=== PATIENT | male | born 1970 | race Caucasian/White ===

== ENCOUNTER 2023-01-22 19:33 | Emergency (ER) | payer MEDICAID, SELFPAY ==
[2023-01-22] VITALS (19 sets, daily range): BP systolic 142–192; BP diastolic 77–114; PULSE 60–80; RESP 18–32; TEMP 36.6; O2SAT 93–97; BMI 33.7
--- NOTE | 2023-01-22 19:35 | EKG12_ITS ---
Test Reason : DYSRHYTHMIA Blood Pressure : / mmHG Vent. Rate : 071 BPM Atrial Rate : 071 BPM P-R Int : 126 ms QRS Dur : 092 ms QT Int : 410 ms P-R-T Axes : 061 -29 076 degrees QTc Int : 445 ms Normal sinus rhythm Left ventricular hypertrophy Abnormal ECG Confirmed by MARIA EUGENIA REAL, RADHA ([id number]), editorial clerk ANASTASIIA DENSON ([id number]) on 01/23/2023 9:06:51 AM Referred By: GEE Confirmed By:RADHA DEL CID MD
--- NOTE | 2023-01-22 19:35 | CT_ITS ---
STUDY: CT BRAIN WITHOUT CONTRAST REASON FOR EXAM: Male, 52 years old. Neuro deficit, acute, stroke suspected RADIATION DOSAGE (If Supplied By Facility): CTDIvol = ( ) mGy, DLP = ( ) mGycm TECHNIQUE: Transaxial CT imaging of the brain was performed without administration of intravenous contrast material. Individualized dose optimization techniques were used for this CT. COMPARISON: No relevant priors. FINDINGS: Normal soft tissue structures. Normal calvarium. Normal size ventricles and extra-axial spaces for the patient''s age. Normal white matter tracts of the cerebral hemispheres. Normal basal ganglia and thalami. Normal brainstem. Normal cerebellum. There is no intracranial hemorrhage. Encephalomalacia in the right occipital lobe consistent with a chronic infarct. Normal visualized paranasal sinuses. CT/STROKE Brain/Head without Cont IMPRESSION: No acute intracranial hemorrhage. N.B. : The above Results were Read Back by Roel Ryan MD to Carie Millard DO, and understanding confirmed on 01/22/2023 19:51:30 (ET). Electronically Signed: Roel Ryan MD at 19:52 EDT ,
--- NOTE | 2023-01-22 19:36 | CT_ITS ---
We are attempting to reach an attending provider to discuss findings. An addendum with communication details will be sent when the communication is complete. STUDY: CTA HEAD AND NECK WITH CONTRAST REASON FOR EXAM: Male, 52 years old. Neuro deficit, acute, stroke suspected RADIATION DOSAGE (If Supplied By Facility): CTDIvol = ( 30.44 ) mGy, DLP = ( 740.70 ) mGycm TECHNIQUE: CT angiography was performed with a multi-detector CT scanner. Data acquisition was obtained from the skull base through the vertex following intravenous administration of IV 100mL Isovue-370. MIP images were reconstructed from the axial data set. Post-processing of the angiographic images was performed, with multiplanar reformation and 3D reconstruction. Individualized dose optimization techniques were used for this CT. COMPARISON: No relevant priors. FINDINGS: Normal bilateral petrous carotid arteries. Normal right cavernous carotid artery with a normal supraclinoid bifurcation. Normal left cavernous carotid artery with a normal supraclinoid bifurcation. Normal right A1 segments of the anterior cerebral artery. There is non-visualization of the left A1 segment of the anterior cerebral arteries consistent with either aplastic development or an occlusion. Normal intact anterior communicating artery (ACOM). Normal bilateral A2 segments of the anterior cerebral arteries. Normal right M1 and M2 segments of the middle cerebral arteries, with a normal M1 bifurcation. Normal left M1 and M2 segments of the middle cerebral arteries, with a normal M1 bifurcation. Normal right posterior communicating artery (PCOM). Normal left posterior communicating artery (PCOM). Normal bilateral vertebral arteries. Normal basilar artery with a normal basilar bifurcation. The visualized bilateral superior cerebellar (SCA) arteries are normal. Normal bilateral P1, P2 and visualized P3 segments of the posterior cerebral arteries. There is no demonstrated aneurysm of the iliamna of [place]. There is no demonstrated abnormality of the visualized brain. AORTIC ARCH: Normal visualized aortic arch. Normal origins of the brachiocephalic, left common carotid, and left subclavian arteries. RIGHT CAROTID ARTERIES: Normal right common carotid artery (CCA). There is mild atherosclerotic plaque formation with minimal narrowing of the right carotid bulb. There is mild atherosclerotic plaque formation of the origin of the right internal carotid artery with less than 50% cross sectional diameter stenosis. Normal visualized cervical portion of the right internal carotid artery. Normal origin of the right external carotid artery (ECA). LEFT CAROTID ARTERIES: Normal left common carotid artery (CCA). Normal left common carotid bulb. Normal origin of the left internal carotid (ICA) artery without a hemodynamically significant stenosis. Normal visualized cervical portion of the left internal carotid artery. Normal origin of the left external carotid artery (ECA). VERTEBRAL ARTERIES: Normal bilateral vertebral arteries. CT/STROKE CTA Head AND Neck W/Con IMPRESSION: Normal CTA Head with contrast. Mild (20%) stenosis right carotid stenosis. No left carotid stenosis. Patent vertebral arteries bilaterally. Electronically Signed: Roel Ryan MD at 20:22 EDT ,
[2023-01-22 19:41] LABS: Absolute Lymphocyte Count 1.55 X10^3/uL (0.83-4.51); Basophil# 0.06 X10^3/uL; Basophil% 0.5 % (0-1); Eosinophil# 0.28 X10^3/uL; Eosinophils% 2.4 % (0-5); Hematocrit 35.9 % (40-54); Hemoglobin 11.3 g/dL (13.0-16.5); Lymphocyte # 1.55 X10^3/ul (0.83-4.51); Lymphocyte % 13.2 % (19-41); Mean Corp Hgb Conc 31.5 g/dL (32-36); Mean Corpuscular Hgb 27.1 pg (27.0-32.0); Mean Corpuscular Volume 86.1 fL (80-94); Mean Platelet Vol. 11.5 fl (6.2-12.0); Monocyte# 0.81 X10^3/uL; Monocyte% 6.9 % (0-10); NRBC Flagged by Analyzer 0 % (0-5); Neutrophil # 9.01 X10^3/uL (2.7-7.7); Neutrophil % 76.6 % (47-70); Platelet Count 278 K/mm3 (150-450); RBC Distribution Width CV 13.6 % (11.6-14.6); RBC Distribution Width SD 42.3 fl (35.1-43.9); Red Blood Count 4.17 M/mm3 (4.6-6.2); White Blood Count 11.8 K/mm3 (4.4-11.0)
[2023-01-22 19:50] LABS: International Normalized Ratio 1.1; Prothrombin Time (Protime)PT. 14.5 SECONDS (11.7-14.9)
[2023-01-22 19:51] LABS: Partial Thromboplast Time 24.6 Seconds (24.1-36.2)
--- NOTE | 2023-01-22 20:04 | NURSING ---
This RN called [facility] @ [address] Demographics and info given. Pt to room @ 1945 and [facility] notified. Neuro on screen @ 1953.
[2023-01-22 20:10] LABS: Bedside Glucose 175 mg/dL (74-106)
[2023-01-22] MEDS: Tenecteplase 25 MG in Syringe 1 EACH 3600 MG IV (20:13)
[2023-01-22] MEDS: 0.9% Saline Lock 10 ML Syringe IV ×2 (20:13→20:14)
[2023-01-22 20:18] LABS: Anion Gap 6 (5-15); BUN 40 mg/dL (7-18); BUN/Creat Ratio 11.2 RATIO (10-20); Calcium,Total 8.6 mg/dL (8.5-10.1); Chloride 112 mmol/L (98-107); Creatinine, Serum 3.58 mg/dL (0.70-1.30); EST Glomerular Filtration Rate 19 mL/min (>60); Est Glom Filt Rate - Afr Amer 23 mL/min (>60); Estimated Creatinine Clearance 24.92 ml/min; Glucose 193 mg/dL (74-106); Potassium 4.6 mmol/L (3.5-5.1); Sodium Level 138 mmol/L (136-145); Troponin-I HS 474 pg/mL (3.0-78.0)
--- NOTE | 2023-01-22 20:30 | RAD_ITS ---
STUDY: X-RAY CHEST REASON FOR EXAM: Male, 52 years old. Neuro deficit, acute, stroke suspected TECHNIQUE: Single AP portable view of the chest. COMPARISON: None. FINDINGS: Poor inspiration with some bibasilar atelectasis. There is no demonstrated pleural abnormality. There is moderate cardiac enlargement. Normal mediastinum and deyanira. Normal visualized pulmonary arteries. Normal visualized aortic arch and descending thoracic aorta. Normal visualized thoracic spine. Normal visualized ribs, clavicles, and shoulders. There is no demonstrated abnormality of the visualized soft tissue structures of the upper abdomen. RAD/Chest 1 View IMPRESSION: Poor inspiration with some bibasilar atelectasis. Cardiomegaly. Electronically Signed: Roel Ryan MD at 20:43 EDT ,
[2023-01-22] MEDS: 0.9% Normal Saline 1,000 ML 100 ML IV (20:41)
[2023-01-22] MEDS: LORazepam 2 MG/ML Syringe IV (21:26)
[2023-01-22 21:38] LABS: Bedside Glucose 177 mg/dL (74-106)
--- NOTE | 2023-01-22 21:45 | ED.RN ---
physicians called for critical care no truck tonight [facility] called [facility] for critical care 3 am or later [facility] called for flight unable to fly due to weather [facility] called unable to do ground transport tonight physicians called for ALS transport eta 2-3 hours booked at this time Gr. Millard updated at this time
[2023-01-22] MEDS: Labetalol (Prefilled) 20 MG/4 ML IV (21:51)
[2023-01-22 22:54] LABS: Troponin-I HS 446 pg/mL (3.0-78.0)
[2023-01-23 00:06] VITALS: BP 158/81; PULSE 65; RESP 23; O2SAT 95
--- NOTE | 2023-01-23 00:08 | EX.ED.CRITCA ---
HPI History of Present Illness Chief Complaint: Stroke Alert Informant: family and EMS Narrative Narrative: Patient is a 52 year old male with history of prior stroke with peripheral vision deficit and hypertension as well as diabetes with medication noncompliance (daughter states he has not been taking his medicines over the past 2 months and she just found out about this) presenting for altered mental status and concern for stroke. Daughter states she spoke with him at 1750 on FaceTime and he was normal. She got home from work around 820 and thought she heard him coughing. She went to check on him and found him vomiting laying on his left side. He was unresponsive. EMS was called he was brought to the emergency room. Patient's blood sugars in the 200s which is normal for him in route. Stroke alert was called prehospital. Patient is unable to contribute to the history. Patient is on any blood thinners. [facility] Medical History Diabetes Hypercholesteremia Hypertension Stroke Home Medications atorvastatin 80 mg tablet 40 mg PO QHS 01/22/23 [History Last Taken Unknown] dapagliflozin propanediol 10 mg tablet (Farxiga) 10 mg PO DAILY 01/22/23 [History Last Taken Unknown] glimepiride 4 mg tablet 4 mg PO DAILY 01/22/23 [History Last Taken Unknown] lisinopril 20 mg-hydrochlorothiazide 12.5 mg tablet 1 tab PO DAILY 01/22/23 [History Last Taken Unknown] Allergy/AdvReac Type Severity Reaction Status Date / Time No Known Allergies Allergy Verified 01/22/23 19:42 Surgical History no surgical history Social History Smoking Status: Current every day smoker tobacco type: smokeless tobacco ROS ROS ED Review of Systems ROS Unobtainable: due to mental status EXAM Physical Exam Const Vital Signs: 01/22/23 19:33 01/22/23 19:33 01/22/23 19:48 Temperature 97.8 F Temperature Source Axillary Pulse Rate 78 78 77 Respiratory Rate 18 18 25 H Blood Pressure 180/108 H 180/108 H 142/88 H Blood Pressure Mean 132 132 106 Blood Pressure Source Blood Pressure Position Blood Pressure Location Pulse Ox 96 96 96 Oxygen Delivery Method Room Air Room Air Room Air 01/22/23 19:52 01/22/23 19:54 01/22/23 19:55 Temperature 97.8 F Temperature Source Axillary Pulse Rate 74 Respiratory Rate 26 H Blood Pressure Blood Pressure Mean Blood Pressure Source Blood Pressure Position Blood Pressure Location Pulse Ox 95 Oxygen Delivery Method Room Air Room Air 01/22/23 20:02 01/22/23 20:13 01/22/23 20:06 Temperature Temperature Source Pulse Rate 73 70 Respiratory Rate 24 H 25 H Blood Pressure 168/97 H 168/97 H 168/97 H Blood Pressure Mean 120 120 Blood Pressure Source Monitor Blood Pressure Position Semi-Fowlers Blood Pressure Location Right Arm Pulse Ox 96 96 Oxygen Delivery Method Room Air Room Air 01/22/23 20:21 01/22/23 20:36 01/22/23 20:51 Temperature Temperature Source Pulse Rate 69 70 80 Respiratory Rate 23 H 26 H 28 H Blood Pressure 158/92 H 169/95 H 172/97 H Blood Pressure Mean 114 119 122 Blood Pressure Source Monitor Monitor Monitor Blood Pressure Position Semi-Fowlers Semi-Fowlers Semi-Fowlers Blood Pressure Location Right Arm Right Arm Right Arm Pulse Ox 94 96 97 Oxygen Delivery Method Room Air Room Air Room Air 01/22/23 21:06 01/22/23 21:21 01/22/23 21:36 Temperature Temperature Source Pulse Rate 71 69 77 Respiratory Rate 25 H 23 H 26 H Blood Pressure 168/77 H 174/91 H 168/84 H Blood Pressure Mean 107 118 112 Blood Pressure Source Monitor Monitor Monitor Blood Pressure Position Semi-Fowlers Semi-Fowlers Semi-Fowlers Blood Pressure Location Right Arm Right Arm Right Arm Pulse Ox 96 95 95 Oxygen Delivery Method Room Air Room Air Room Air 01/22/23 21:51 01/22/23 22:06 01/22/23 22:24 Temperature Temperature Source Pulse Rate 73 65 65 Respiratory Rate 23 H 31 H 32 H Blood Pressure 192/114 H 173/95 H 168/83 H Blood Pressure Mean 140 121 111 Blood Pressure Source Monitor Monitor Blood Pressure Position Semi-Fowlers Semi-Fowlers Blood Pressure Location Right Arm Right Arm Pulse Ox 96 96 95 Oxygen Delivery Method Room Air Room Air Room Air 01/22/23 22:36 01/22/23 23:06 01/22/23 23:36 Temperature Temperature Source Pulse Rate 63 60 64 Respiratory Rate 24 H 32 H 30 H Blood Pressure 166/92 H 158/87 H 143/88 H Blood Pressure Mean 116 110 106 Blood Pressure Source Monitor Monitor Monitor Blood Pressure Position Semi-Fowlers Semi-Fowlers Semi-Fowlers Blood Pressure Location Right Arm Right Arm Right Arm Pulse Ox 95 93 96 Oxygen Delivery Method Room Air Room Air Room Air Positive obese Constitutional Narrative: lethargic Nutritional Appearance: obese HEENT normocephalic and atraumatic Eyes PERRL Eyes Narrative: no gaze deviation. Eyes are midline. Seems to try to close his eyes very try to lift up his eyelids. Neck full ROM, supple and no JVD Cardio regular rate, regular rhythm and no murmurs GI non-tender and non-distended GI Narrative: Protuberant abdomen Palpation: soft Neuro Neuro Narrative: Patient is decreased tone on the left side. He is not able to follow commands at this time. See NIH below. All extremities drop to the bed quickly. Has intermittent pill-rolling of his left hand and intermittent twitching of bilateral legs, more pronounced on the left. [place] Coma Scale: document GCS findings To Pain Withdraws to Pain Incomprehensible 8 Skin Lesions: no lesions MDM MDM MDM Narrative Medical decision making narrative: Patient is evaluated for altered mental status. He is found to have significant aphasia and does seem to have flaccid left side but he has decreased strength throughout the whole body is unable to follow commands. GCS is 8 and he is protecting his airway so did not intubate at this time. Stroke alert was called in route. Patient sent to CT immediately. Daughter is there who is a very good historian and able to give timeline and history. CT of the brain as well as CTA does not show any acute process. He does have encephalomalacia from prior stroke. Discussed with neurologist, Dr. Valderrama, who agrees that differential includes seizure as well as acute stroke. We discussed risk and benefits with daughter and she is agreeable with TNK. Patient is given TNK. He is also loaded with 20 mg/kg of Keppra. Discussed with her transfer to [facility] versus admitting at [facility]. She feels that if patient's mental status improves he potentially could stay here otherwise with the transfer. After infusion of TNK as well as Keppra patient does not have any improvement of his mentation. He continues to have a pill-rolling tremor. Will be transferred to [facility]. Daughter is agreeable this. In addition patient is found to have elevation of his creatinine of 3.58. We do not have a baseline however daughter is not aware of any history of CKD. He has a mild leukocytosis 11.8 which is nonspecific. He has an elevation of his troponin of 474. This is quite significant. Patient is a normal anion gap. On repeat it is 446. EKG is nonischemic. This is more consistent with an NSTEMI. As patient already received TNK will not give aspirin or heparin at this time. Case was again discussed with Dr. Valderrama. He will go to the emergency room. Accepting physician is Dr. Ahmadi in the ER. Per recommendation of neurology, patient is given 2 mg IV Ativan. He does seem to have improvement of his pill-rolling but no other significant change. Patient does require 1 dose of labetalol in the ER for hypertension. Patient is placed on end-tidal capnography as I do not want to arterial puncture him since he just got TNK but to closely monitor his airway especially after receiving Ativan. His end-tidal CO2 initially is 28 and improved to 20. He has a stable respiratory rate. He has no acute hypoxia. I do not think he requires intubation for transfer. History & Record Review Discussion w/independent historian: EMS personnel and Family Lab Data Labs: Laboratory Results - last 24 hr 01/22/23 01/22/23 01/22/23 19:35 19:35 19:35 WBC 11.8 H RBC 4.17 L Hgb 11.3 L Hct 35.9 L MCV 86.1 MCH 27.1 MCHC 31.5 L RDW Std Deviation 42.3 RDW Coeff of Phillip 13.6 Plt Count 278 MPV 11.5 Immature Gran % (Auto) 0.400 Neut % (Auto) 76.6 H Lymph % (Auto) 13.2 L [place] % (Auto) 6.9 Eos % (Auto) 2.4 Baso % (Auto) 0.5 Absolute Neuts (auto) 9.0 H Absolute Lymphs (auto) 1.55 Nucleated RBC % 0 PT 14.5 INR 1.1 APTT 24.6 Sodium 138 Potassium 4.6 Chloride 112 H Carbon Dioxide 20.0 L Anion Gap 6 BUN 40 H Creatinine 3.58 H Estim Creat Clear Calc 24.92 Est GFR (MDRD) Af Amer 23 L Est GFR (MDRD) Non-Af 19 L BUN/Creatinine Ratio 11.2 Glucose 193 H Calcium 8.6 Troponin I High Sens 474 H* POC Glucose 01/22/23 01/22/23 01/22/23 19:52 21:11 22:21 WBC RBC Hgb Hct MCV MCH MCHC RDW Std Deviation RDW Coeff of Phillip Plt Count MPV Immature Gran % (Auto) Neut % (Auto) Lymph % (Auto) [place] % (Auto) Eos % (Auto) Baso % (Auto) Absolute Neuts (auto) Absolute Lymphs (auto) Nucleated RBC % PT INR APTT Sodium Potassium Chloride Carbon Dioxide Anion Gap BUN Creatinine Estim Creat Clear Calc Est GFR (MDRD) Af Amer Est GFR (MDRD) Non-Af BUN/Creatinine Ratio Glucose Calcium Troponin I High Sens 446 H* POC Glucose 175 H 177 H Radiography Chest X-Ray - ED: 1 View, Read by ED Physician, Read by Radiologist and Cardiomegaly Diagnostic Testing: Clinical Impression(s) from Imaging Studies Brain CT 01/22/23 19:35 IMPRESSION: No acute intracranial hemorrhage. N.B. : The above Results were Read Back by Roel Ryan MD to Carie Millard DO, and understanding confirmed on 01/22/2023 19:51:30 (ET). Electronically Signed: Roel Ryan MD at 19:52 EDT , ADDENDUM: 01/22/231958 IMPRESSION: No acute intracranial hemorrhage. N.B. : The above Results were Read Back by Roel Ryan MD to Carie Millard DO, and understanding confirmed on 01/22/2023 19:51:30 (ET). Electronically Signed: Roel Ryan MD at 19:52 EDT , Head/Neck CTA 01/22/23 19:36 IMPRESSION: Normal CTA Head with contrast. Mild (20%) stenosis right carotid stenosis. No left carotid stenosis. Patent vertebral arteries bilaterally. Electronically Signed: Roel Ryan MD at 20:22 EDT Reading Location ID and State: [id number] / [employer] Tel , Service support , ADDENDUM: 01/22/232028 IMPRESSION: Normal CTA Head with contrast. Mild (20%) stenosis right carotid stenosis. No left carotid stenosis. Patent vertebral arteries bilaterally. N.B. : The above Results were Read Back by Roel Ryan MD to Carie Millard DO, and understanding confirmed on 01/22/2023 20:23:01 (ET). Electronically Signed: Roel Ryan MD at 20:22 EDT Reading Location ID and State: [id number] / [employer] Tel , Service support , Chest X-Ray 01/22/23 20:30 IMPRESSION: Poor inspiration with some bibasilar atelectasis. Cardiomegaly. Electronically Signed: Roel Ryan MD at 20:43 EDT Reading Location ID and State: [id number] / [employer] Tel , Service support , Rhythm Strip Rhythm Strip: Sinus Rhythm Rate: 71 Ectopy: None EKG Initial EKG: Attestation: I personally reviewed and interpreted this EKG as follows: Interpretation: Sinus Rhythm Comments: Normal sinus rhythm rate of 71 bpm LVH Left axis deviation T wave inversions in 1 and aVL with no reciprocal changes No prior EKG available for comparison Normal intervals Management Discussion w/another healthcare provider: Snout Puller (Neurology ) and Radiologist Critical Care Time Critical Care Time: Yes Critical care time (excluding procedures): 30-74 minutes (60), Discussing w/Patient &/or Family/Water Resource Project Manager, Discussing w/Consultants (Neurology, radiology), Arranging Admission or Transfer and Performing Direct Patient Care at Bedside Discharge Plan Triage Chief Complaint: Stroke Alert ED Provider: Carie Millard Dx/Rx/DC Orders Clinical Impression: Acute stroke due to ischemia, Seizure-like activity, AMANDA (acute kidney injury), Hypertension, Hyperglycemia, Medical non-compliance Prescriptions: No Action atorvastatin 80 mg tablet 40 mg PO QHS Label Comments: TAKE 1 TABLET DAILY. lisinopril-hydrochlorothiazide 20-12.5 mg tablet 1 tab PO DAILY Label Comments: Take 1 tablet daily glimepiride 4 mg tablet 4 mg PO DAILY Label Comments: TAKE 1 TABLET BY MOUTH DAILY Farxiga 10 mg tablet 10 mg PO DAILY Label Comments: Take 1 tablet daily Primary Care Provider: Michael Tripp Referrals: Michael Tripp MD [Primary Care Provider] - Disposition Disposition: Acute Care Hospital Discharge Location: [facility] NIHSS NIHSS 1a. Level of Consciousness: Not alert; 1b. LOC Questions: Answers neither question correctly. 1c. LOC Commands: Performs both tasks correctly. 2. Best Gaze: Normal 3. Visual: No visual loss 4. Facial Palsy: Normal symmetrical movements 5a. Left Arm: No effort against gravity; arm falls 5b. Right Arm: Some effort against gravity; 6a. Left Leg: No effort against gravity; leg falls to bed immediately 6b. Right Leg: No effort against gravity; leg falls to bed immediately 7. Limb Ataxia: Absent 8. Sensory: Efew-wa-[id number] sensory loss; 9. Best Language: Mute, global aphasia; 10. Dysarthria: Severe dysarthria; 11. Extinction and Inattention: No abnormality (Unable to test) Total: 21 Stroke Questions Stroke Team Activated: Yes a.Reviewed Inclusion/Exclusion criteria: Yes Was Patient considered for Endovascular Intervention?: Yes IV Thrombolytic Administered: Yes No contraindications from thrombolytic administration: Yes Risks, Benefits, Alternatives Discussed: Yes Not given: Patient refusal: No
[2023-01-23 00:36] VITALS: BP 141/81; PULSE 59; RESP 21; O2SAT 93
== END 2023-01-23 00:46 | disposition short-term general hospital (02) ==
PROVIDERS: Emergency Provider Emergency Medicine; PCP Family Medicine; Visit Provider Emergency Medicine
DX: I63.9 Cerebral infarction, unspecified (principal); N17.9 Acute kidney failure, unspecified; E11.65 Type 2 diabetes mellitus with hyperglycemia; R56.9 Unspecified convulsions; R47.01 Aphasia; I10 Essential (primary) hypertension; F17.220 Nicotine dependence, chewing tobacco, uncomplicated; E78.00 Pure hypercholesterolemia, unspecified; I69.398 Other sequelae of cerebral infarction; H54.7 Unspecified visual loss; Z91.148 Patient's other noncompliance with medication regimen for other reason; Z79.899 Other long term (current) drug therapy; E66.9 Obesity, unspecified; G93.89 Other specified disorders of brain
CPT/HCPCS: 51702; 70450; 70496; 70498; 71045; 80048; 82962; 84484; 85025; 85610; 85730; 93005; 96361; 96365; 96375; 99285; J3101; J7030; J7050; Q9967; A4216